=== PATIENT | female | born 1945 | race Caucasian/White ===

== ENCOUNTER → 2016-06-14 | Outpatient (CLI) | payer OTHER ==
[~2016-06-14] VITALS: Ht 160 cm; Wt 59.4 kg
[~2016-06-14] MED LIST: ACID CONTROLLER20 MG PO; ASPIR 8181 MG PO; B COMPLETE1 EAC1 PO; BYSTOLIC10 MG PO; CALCIUM CARBON600 MG PO; CELEBREX 200 M200 M1 PO; DIPHENHIST50 MG PO; ELOCON15 GM TP; EVISTA PO; FLINTSTONES WIT18 MG PO; GLUCOSAMINE H1500 MG PO; MAGNESIUM OXID400 MG PO; NEURONTIN 300300 M1 PO; VITAMIN C1000 MG PO
--- NOTE | ~2016-06-14 | HPC ---
[facility] [address] [address] PAIN MANAGEMENT CONSULTATION Name: PALMER QUESADA Room #: REG NAMRATA Kodi.#: [id number] Admission: 06/14/16 Attend Phys: Naif Mcfadden MD Discharge: Date of : 47 Report #: [id number] THIS REPORT FOR: //name// CC: ROBERTO Mcfadden DATE OF SERVICE: 06/14/2016 REASON FOR CONSULTATION: Followup visit for severe scoliosis and mid back pain. HISTORY OF PRESENT ILLNESS: I am seeing the patient for the second time. I gave her an epidural injection at her last visit. She has extremely severe scoliosis and dramatic rotational component spondylitic changes in the lower lumbar spine where she has pain across the low back. The pain does not radiate into her legs and she does not have much radiculopathy, but the mechanical pain is severe. An epidural injection was provided with some short-term relief, not more than a week or two. Consider repeating the injection with the old notion of a series of injections; however, ultimately decided today to focus attention on the medial branch nerves and the facet joints of the lumbar spine. We discussed the difference between these injections and these approaches towards different pain generators and willing to proceed today with a trial injection. She has an upcoming weekend where her house will be full of children and grandchildren. Her daughter from [place] who has 11 children and is coming this week. I have talked to her about planing patient prioritizing. We had a short discussion about medication today. She is currently a bit fearful taking any stronger pain medication with all of the discussions of addiction and opioids risks. She is on gabapentin but given her lack of neuropathic features at this time, it is slightly not to provide much relief. PHYSICAL EXAMINATION: Marked scoliosis is noted of the lumbar spine, large scar from previous corrective surgery in her teenage years. Most of her pain and tenderness across the lumbosacral segment whether is palpable discomfort along the paravertebral lumbar spine bilaterally. She has pain with all movements. IMPRESSION: 1. Severe scoliosis, degenerative disk disease with facet arthritis and arthropathy. 2. Hypertension. PLAN: Bilateral medial branch nerves and facet injections. Injections were discussed with the patient, potential risks and benefits, was taken to fluoroscopic suite for treatment. She was placed prone, skin was prepped widely [place] Betad[place] [address] PAIN MANAGEMENT CONSULTATION Name: PALMER QUESADA Room #: REG NAMRATA Mcdaniel#: [id number] Admission: 06/14/16 Attend Phys: Naif Mcfadden MD Discharge: Date of : 47 Report #: [id number] spine. The landmarks for identifying the medial branch nerve and the facet joints were as expected quite challenging. I first anesthetized the skin on the left at three locations and needles were advanced into the medial portion of the transverse process at L4-L5 and along the dorsal ramus at the sacral ala. At each location, I injected 1 mL of 0.5% bupivacaine in about 8 mg of triamcinolone. I then redirected the needles toward the inferior recess of the facet joint in each joint and then injected another milliliter of 0.5% bupivacaine and 8 mg of triamcinolone. Total 40 mg triamcinolone was utilized on that side. She tolerated the injections well. I then moved the C-arm to the operative side where we performed a similar injection. I essentially injected the medial branch nerves of L3 and L4 and the dorsal ramus of L5 on each side as well as a small amount of medication placed at the base of the joint and the facet below the recess there. She tolerated the procedure well and was observed in recovery room. Pain score was reduced by about 50% in the recovery room, was under dramatic reduction as we often hope to see with medial branch nerve blocks in the initial. We will follow up in about a month or so. This may be challenging cage to manage with either injection or radiofrequency ablation. She might be a candidate for an intrathecal pump or another management technique. I will also encourage her may be to trial opioids or some form of medication to help with her intractable pain. We discussed planning the patient prioritizing for the weekend. She was discharged in good condition. By: [id number] Naif Mcfadden MD /nt
[2016-06-14 12:48] VITALS: BP 160/105
== END | disposition home or self-care (01) ==
LOC: PAIN 07:03
DX: M47.816 Spondylosis without myelopathy or radiculopathy, lumbar region (principal); M41.86 Other forms of scoliosis, lumbar region; I10 Essential (primary) hypertension

== ENCOUNTER → 2019-05-12 | Outpatient (CLI) | payer OTHER | LOC: SJCVCIMAG 14:59 | DX: I08.8 Other rheumatic multiple valve diseases (principal); I10 Essential (primary) hypertension; E78.00 Pure hypercholesterolemia, unspecified; I38 Endocarditis, valve unspecified; Z79.82 Long term (current) use of aspirin; Z79.899 Other long term (current) drug therapy ==

== ENCOUNTER → 2019-11-17 | Outpatient (CLI) | payer OTHER | LOC: SJCVC 14:26 | PROVIDERS: ATTEND Internal Medicine Cardiovascular Disease | DX: R94.31 Abnormal electrocardiogram [ECG] [EKG] (principal); I10 Essential (primary) hypertension; R55 Syncope and collapse; E78.00 Pure hypercholesterolemia, unspecified; R01.1 Cardiac murmur, unspecified; Z79.899 Other long term (current) drug therapy ==

== ENCOUNTER → 2020-08-23 | Outpatient (CLI) | payer OTHER | LOC: SJCVCIMAG 10:26 | PROVIDERS: ATTEND Internal Medicine Cardiovascular Disease | DX: I08.1 Rheumatic disorders of both mitral and tricuspid valves (principal); I27.20 Pulmonary hypertension, unspecified; R94.31 Abnormal electrocardiogram [ECG] [EKG]; I11.9 Hypertensive heart disease without heart failure; E78.00 Pure hypercholesterolemia, unspecified; Z79.82 Long term (current) use of aspirin; Z79.899 Other long term (current) drug therapy; Z87.898 Personal history of other specified conditions ==